=== PATIENT | male | born 1965 | race Caucasian/White ===

== ENCOUNTER 2018-09-08 01:53 | Emergency (ER) | payer OTHER ==
[~2018-09-08] VITALS: Ht 180.3 cm; Wt 77.1 kg
[~2018-09-08 01:53] MED LIST: AIRBORNE TABLE1 EAC1 PO; KEFLEX500 MG PO; NORCO 5-325 TA1 EACH PO; NYQUIL D COLD295 ML PO; ZOFRAN4 MG PO
[2018-09-08] MEDS ORDERED: CYCLOBENZAPRINE10 MG PO (02:17)
== END 2018-09-08 02:28 | disposition home or self-care (01) ==
LOC: ED 01:53
DX: S39.012A Strain of muscle, fascia and tendon of lower back, initial encounter (principal); X50.0XXA Overexertion from strenuous movement or load, initial encounter; I10 Essential (primary) hypertension; F17.200 Nicotine dependence, unspecified, uncomplicated
CPT/HCPCS: 99283

== ENCOUNTER 2020-08-15 10:05 | Emergency (ER) | payer OTHER ==
[~2020-08-15] VITALS: Ht 180.3 cm; Wt 77.1 kg
[~2020-08-15 10:05] MED LIST changes: +CYCLOBENZAPRINE10 MG PO
--- OUTSIDE RECORDS SUMMARY | 2020-08-15 10:08 | XMS ---
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 There are no care providers on record at this time. Jimi has no Care Guidelines for this patient. Reza VISIT COUNT (12 MO.) 1 [facility] TOTAL 1 NOTE: Visits indicate total known visits. ED/C VISIT TRACKING (12 MO.) 08/15/2020 10:06 [facility] [place] TYPE: Emergency COMPLAINT: - LEFT ARM PAIN INPATIENT VISIT TRACKING (12 MO.) No inpatient visits to display in this time frame [email or web address]
[2020-08-15] MEDS ORDERED: IBUPROFEN800 MG PO (10:15)
[2020-08-15] MEDS ORDERED: HYDROCODON-ACE1 EA13 PO (11:13)
== END 2020-08-15 11:31 | disposition home or self-care (01) ==
LOC: ED 10:05
DX: S42.255A Nondisplaced fracture of greater tuberosity of left humerus, initial encounter for closed fracture (principal); W00.0XXA Fall on same level due to ice and snow, initial encounter; I10 Essential (primary) hypertension; F17.200 Nicotine dependence, unspecified, uncomplicated
CPT/HCPCS: 73030; 96372; 99283-25; J1885

== ENCOUNTER 2023-04-11 06:40 | Emergency (ER) | payer OTHER ==
[~2023-04-11] VITALS: Ht 180.3 cm; Wt 75.0 kg
[~2023-04-11 06:40] MED LIST changes: +HYDROCODON-ACE1 EA13 PO; +IBUPROFEN800 MG PO
[2023-04-11 07:18] LABS: HEMATOCRIT 42.7 % (35.0-50.0); HEMOGLOBIN 14.9 g/dL (12.0-18.0); MCH 34.8 (27-36); MCHC 34.9 g/dl (30-36); MCV 99.7 fl (81-99); PLATELET COUNT 221 K/uL (140-440); RBC 4.28 M/ul (4.3-5.7); RDW 14.7 (10.5-15.0)
[2023-04-11 07:19] LABS: ALBUMIN 3.8 g/dL (3.4-5.0); ALBUMIN/GLOBULIN RATIO 0.9 (1.1-2.4); ANION GAP 13.7 (7-21); BILIRUBIN, TOTAL 10.5 ng/dL (0.2-1.0); BUN/CREATININE RATIO 7.69 (6.0-28.6); CALCIUM 9.3 mg/dL (8.5-10.1); CREATININE, SERUM 0.65 mg/dL (0.70-1.30); POTASSIUM 3.7 mmol/L (3.5-5.1)
[2023-04-11 07:20] LABS: INR 0.94 (0.80-1.30); PROTIME 12.2 Sec (11.2-14.2)
[2023-04-11 07:30] LABS: BILIRUBIN, URINE POSITIVE (negative); BLOOD/HGB, URINE NEGATIVE (Negative); KETONE, URINE NEGATIVE (Negative); LEUK ESTERASE, URINE NEGATIVE (negative); NITRITE, URINE NEGATIVE (negative); PH, URINE 6.5 (5-7)
[2023-04-11 07:44] LABS: RED BLOOD CELLS, URINE 0-1 /hpf (0-5); WHITE BLOOD CELLS, URINE 0-1 /HPF (0-5)
[2023-04-11 07:45] LABS: EPITHELIAL CELLS, URINE SQUAMOUS 1+ /lpf (0-1+); REFLEX CULTURE, URINE No (No)
[2023-04-11 08:00] LABS: BASOPHILS, MANUAL DIFF 2; EOSINOPHILS, MANUAL DIFF 1; LYMPHOCYTES, MANUAL DIFF 27; MONOCYTES, MANUAL DIFF 6; NEUTROPHILS, MANUAL DIFF 63
[2023-04-11 10:20] VITALS: BP 150/101
== END 2023-04-11 10:21 | disposition home or self-care (01) ==
LOC: ED 06:40
PROVIDERS: Emergency Medicine; Internal Medicine
DX: K83.1 Obstruction of bile duct (principal); Z20.822 Contact with and (suspected) exposure to COVID-19; I10 Essential (primary) hypertension; J45.909 Unspecified asthma, uncomplicated; F17.200 Nicotine dependence, unspecified, uncomplicated
CPT/HCPCS: 36415; 74177; 76705; 80053; 81001; 83690; 85025; 85610; 85730; 99284-25; C9803; Q9967; U0002

== ENCOUNTER 2023-12-25 10:00 | Emergency (ER) | payer OTHER ==
[~2023-12-25] VITALS: Ht 180.3 cm; Wt 78.3 kg
--- OUTSIDE RECORDS SUMMARY | 2023-12-25 10:02 | XMS ---
PreManage Notification: KVNG FRAZIER Security Patient Case Coordinator Events No recent Security Events currently on file CRITERIA MET - [facility] CARE PROVIDERS - [facility] Dentist: Data Entry Clerk Current [place] PHONE: [phone] -, Justyn- Dentist: Data Entry Clerk Current [facility] PHONE: [phone] -Lalo- Dentist: Data Entry Clerk Current [facility] PHONE: [phone] [facility] [facility] Clinic[facility]Center: [facility] PHONE: [phone] Jimi has no Care Guidelines for this patient. Reza VISIT COUNT (12 MO.) 2 [facility] NOTE: Visits indicate total known visits. ED/UCC VISIT TRACKING (12 MO.) 12/25/2023 10:00 [facility] [place] TYPE: Emergency COMPLAINT: - W[facility] [place] [facility] DIAGNOSES: - Displacement of bile duct prosthesis, initial encounter - Right upper quadrant pain - Abdominal Pain 04/12/2023 08:41 [facility] [place] TYPE: Emergency DIAGNOSES: - Other specified diseases of pancreas - Unspecified jaundice - Abdominal Distension - Jaundice (Adult) 04/11/2023 06:41 [facility] [place] TYPE: Emergency COMPLAINT: - ABD/BACK PAIN, VOMITING DIAGNOSES: - Contact with and (suspected) exposure to COVID-19 - Essential (primary) hypertension - Nicotine dependence, unspecified, uncomplicated - Obstruction of bile duct - Unspecified abdominal pain - Unspecified asthma, uncomplicated INPATIENT VISIT TRACKING (12 MO.) 12/18/2023 12:13 [facility] TYPE: Surgery DIAGNOSES: [id number]. Intrahepatic bile duct carcinoma 04/12/2023 08:41 [facility] TYPE: Oncology DIAGNOSES: - Abnormal results of function studies of other organs and systems - Alcohol use, unspecified, uncomplicated - Dorsalgia, unspecified - Elevated white blood cell count, unspecified - Hepatomegaly, not elsewhere classified - Obstruction of bile duct - Other disorders of bilirubin metabolism - Other specified abnormal findings of blood chemistry - Other specified diseases of pancreas - Systemic inflammatory response syndrome (SIRS) of non-infectious origin without acute organ dysfunction - Unspecified jaundice [id number]
[2023-12-25 11:03] VITALS: BP 126/74
== END 2023-12-25 11:04 | disposition home or self-care (01) ==
LOC: ED 10:00
DX: R21 Rash and other nonspecific skin eruption (principal); I10 Essential (primary) hypertension; J45.909 Unspecified asthma, uncomplicated; F17.200 Nicotine dependence, unspecified, uncomplicated
CPT/HCPCS: 99282

== ENCOUNTER 2024-06-04 06:37 | Emergency (ER) | payer OTHER ==
[~2024-06-04] VITALS: Ht 180.3 cm; Wt 69.0 kg
[2024-06-04] MEDS ORDERED: ONDANSETRON ODT8 MG PO (06:55)
[2024-06-04] MEDS ORDERED: VITAMIN D21250 MCG PO (06:55)
[2024-06-04] MEDS ORDERED: HYDROMORPHONE HC2 MG PO (06:55)
[2024-06-04] MEDS ORDERED: VITAMIN B-1100 MG PO (06:55)
[2024-06-04 07:28] LABS: BASOPHILS 1.9 % (0-2); EOSINOPHILS 2.5 % (0-6); HEMOGLOBIN 14.4 g/dL (12.0-18.0); LYMPHOCYTES 12.1 % (24-44); MCH 33.5 (27-36); MCHC 34.2 g/dl (30-36); MCV 97.7 fl (81-99); MONOCYTES 8.9 % (0-12); NEUTROPHILS 74.6 % (39-80); PLATELET COUNT 154 K/uL (140-440); RDW 14.2 (10.5-15.0)
[2024-06-04] MEDS ORDERED: SODIUM CHLORIDE 0.9% 1,000 ML IV PRN (07:45)
[2024-06-04 07:47] LABS: ALBUMIN 3.6 g/dL (3.4-5.0); ALBUMIN/GLOBULIN RATIO 0.97 (1.1-2.4); ANION GAP 14.5 (7-21); BILIRUBIN, TOTAL 1.1 ng/dL (0.2-1.0); BUN/CREATININE RATIO 11.59 (6.0-28.6); CALCIUM 9.3 mg/dL (8.5-10.1); CREATININE, SERUM 0.69 mg/dL (0.70-1.30); MAGNESIUM 1.5 mg/dL (1.8-2.4); POTASSIUM 3.5 mmol/L (3.5-5.1); PROTEIN, TOTAL 7.3 g/dL (6.4-8.2)
[2024-06-04 07:53] LABS: BILIRUBIN, URINE NEGATIVE (negative); BLOOD/HGB, URINE NEGATIVE (Negative); KETONE, URINE NEGATIVE (Negative); LEUK ESTERASE, URINE NEGATIVE (negative); NITRITE, URINE NEGATIVE (negative)
[2024-06-04 09:09] VITALS: BP 131/92
== END 2024-06-04 09:09 | disposition home or self-care (01) ==
LOC: ED 06:37
PROVIDERS: Emergency Medicine
DX: R10.11 Right upper quadrant pain (principal); R10.31 Right lower quadrant pain; I10 Essential (primary) hypertension; J45.909 Unspecified asthma, uncomplicated; K72.10 Chronic hepatic failure without coma; F17.200 Nicotine dependence, unspecified, uncomplicated; Z96.89 Presence of other specified functional implants; Z79.899 Other long term (current) drug therapy
CPT/HCPCS: 36415; 74176; 80053; 81003; 83690; 83735; 85025; 99284-25; J7030